=== PATIENT | female | born 1990 | race Hispanic/Latino ===

== ENCOUNTER 2017-06-08 11:52 | Emergency (ER) | payer OTHER ==
[2017-06-08 11:58] VITALS: O2SAT 100; BMI 23.0
[2017-06-08 12:22] VITALS: RESP 18; TEMP 97.6
[2017-06-08] MEDS ORDERED: Sodium Chloride 0.9% 1,000 ML IV STA (12:24)
[2017-06-08] MEDS ORDERED: Iohexol 240 (50 ml) PO ONE (12:27)
[2017-06-08] MEDS ORDERED: Iohexol 240 (50 ml) ONE (12:46)
[2017-06-08 12:53] LABS: RBC URINE 2 /hpf (0-3); URINE BACTERIA OCC (<OCC); URINE BILIRUBIN NEGATIVE (NEGATIVE); URINE BLOOD NEGATIVE (NEGATIVE); URINE COLOR YELLOW (YELLOW); URINE GLUCOSE (UA) NEG (Normal); URINE KETONE NEGATIVE (NEGATIVE); URINE LEUKOCYTE ESTERASE NEG Leu/uL (Negative); URINE PROTEIN NEGATIVE (NEGATIVE); URINE UROBILINOGEN 0.2-1.0 mg/dL (0.2-1.0); WBC URINE 2 /hpf (0-5)
[2017-06-08 12:54] LABS: BASO % 0.3 % (0.0-2.0); EOS # 0.2 K/uL (0.0-0.7); EOS % 3.6 % (0.0-4.0); HEMATOCRIT 38.6 % (34.0-47.0); LYMPH # 1.5 K/uL (1.0-4.3); LYMPH % 29.5 % (20.0-40.0); MEAN CELL VOLUME 86.6 fl (81.0-99.0); MEAN CORPUSCULAR HEMOGLOBIN 28.7 pg (27.0-31.0); MEAN CORPUSCULAR HGB CONC 33.2 g/dL (33.0-37.0); MEAN PLATELET VOLUME 8.3 fl (7.2-11.7); MONO # 0.4 K/uL (0.0-0.8); MONO % 8.6 % (0.0-10.0); RED CELL DISTRIBUTION WIDTH 12.8 % (11.5-14.5); WHITE BLOOD COUNT 5.2 K/uL (4.8-10.8)
[2017-06-08 13:00] LABS: ALB/GLOB RATIO 1.4 (1.0-2.1); ALKALINE PHOSPHATASE 64 U/L (38-126); ALT/SGPT 40 U/L (9-52); AST/SGOT 32 U/L (14-36); BILIRUBIN,TOTAL 0.3 mg/dl (0.2-1.3); BLOOD UREA NITROGEN 11 mg/dl (7-17); CALCIUM 8.7 mg/dL (8.4-10.2); CARBON DIOXIDE 29 mmol/L (22-30); CHLORIDE 104 mmol/L (98-107); GFR AFRICAN-AMERICAN > 60; GLUCOSE,RANDOM 85 mg/dL (65-105); LIPASE 61 U/L (23-300); POTASSIUM 3.7 MMOL/L (3.6-5.0); SODIUM 145 mmol/l (132-148); TOTAL PROTEIN 6.3 G/DL (6.3-8.2)
[2017-06-08 13:21] LABS: PARTIAL THROMBOPLASTIN TIME 29.6 Seconds (25.6-37.1)
--- NOTE | 2017-06-08 13:46 | ED PDOC ---
HPI: Abdomen Time Seen by Provider: 06/08/17 12:06 Chief Complaint (Nursing): Abdominal Pain Chief Complaint (Provider): abdominal pain History Per: Patient History/Exam Limitations: no limitations Current Symptoms Are (Timing): Still Present Location Of Pain/Discomfort: RLQ, LLQ Quality Of Discomfort: Sharp, Cramping Associated Symptoms: Diarrhea, Loss Of Appetite. denies: Nausea, Vomiting, Constipation, Urinary Symptoms Exacerbating Factors: None Alleviating Factors: None Last Bowel Movement: Today Additional Complaint(s): 26yo female c/o lower abdominal pain intermittently since after eating sushi. States her coworkers also ate same food and experienced gastrointestinal distress day after. She developed crampy lower abdominal pain and had several episodes of nonbloody diarrhea associated with chills over the weekend. Denies urinary symptoms. States LMP May 23, used to be on OCP but lapsed and not taking for last 2 weeks. Saw PHYSICS TECHNICAL OFFICER last week had Pap without concerning abnormality. Past Medical History Reviewed: Historical Data Vital Signs: Last Vital Signs Temp 97.6 F 06/08/17 12:18 Pulse 69 06/08/17 17:27 Resp 18 06/08/17 17:27 BP 109/67 06/08/17 17:27 Pulse Ox 100 06/08/17 17:27 - Medical History PMH: No Chronic Diseases - Surgical History Surgical History: No Surg Hx - Family History Family History: States: Unknown Family Hx - Living Arrangements Living Arrangements: With Family - Social History Current smoker - smoking cessation education provided: No - Immunization History Hx Tetanus Toxoid Vaccination: Yes Hx Influenza Vaccination: No Hx Pneumococcal Vaccination: No - Home Medications Home Medications: Ambulatory Orders Medication Instructions Recorded Dicyclomine [Dicyclomine HCl] 10 mg PO TID #12 cap 06/08/17 - Allergies Allergies/Adverse Reactions: Allergies Allergy/AdvReac Type Severity Reaction Status Date / Time No Known Allergies Allergy Verified 06/08/17 12:23 Review of Systems ROS Statement: Except As Marked, All Systems Reviewed And Found Negative Constitutional: Positive for: Chills, Weight loss. Negative for: Fever Cardiovascular: Negative for: Chest Pain, Palpitations Respiratory: Negative for: Cough, Shortness of Breath Gastrointestinal: Positive for: Abdominal Pain, Diarrhea, Constipation. Negative for: Nausea, Vomiting, Melena, Hematochezia Genitourinary Female: Positive for: Pelvic Pain. Negative for: Dysuria, Frequency Skin: Negative for: Rash, Lesions, Jaundice Neurological: Negative for: Weakness, Numbness Psych: Negative for: Anxiety, Depression Physical Exam - Reviewed Nursing Documentation Reviewed: Yes Vital Signs Reviewed: Yes - Physical Exam Appears: Positive for: Well, Non-toxic, No Acute Distress Head Exam: Positive for: ATRAUMATIC, NORMAL INSPECTION, NORMOCEPHALIC Skin: Positive for: Normal Color, Warm, DRY Eye Exam: Positive for: EOMI, Normal appearance, PERRL ENT: Positive for: Normal ENT Inspection Neck: Positive for: Normal, Painless ROM Cardiovascular/Chest: Positive for: Regular Rate, Rhythm Respiratory: Positive for: CNT, Normal Breath Sounds Gastrointestinal/Abdominal: Positive for: Bowel Sounds, Soft, Tenderness (mild b /l lower abd tenderness). Negative for: Distended, Guarding, Rebound Extremity: Positive for: Normal ROM Neurologic/Psych: Positive for: Alert, Oriented. Negative for: Motor/Sensory Deficits - Laboratory Results Result Diagrams: 06/08/17 12:30 06/08/17 12:30 Urine POC: Negative - ECG O2 Sat by Pulse Oximetry: 100 Pulse Ox Interpretation: Normal Medical Decision Making Medical Decision Making: Pt also took dose cipro and flagyl PO this morning. Workup initiated for lower abd pain with gastrointestinal symptoms. Bloodwork, UDip, CT abd pelv ordered. [id number] PROCEDURE: CT Abdomen and Pelvis with contrast HISTORY: lower abd pain, diarrhea FINDINGS: LOWER THORAX: Unremarkable. LIVER: Unremarkable. No gross lesion or ductal dilatation. GALLBLADDER AND BILE DUCTS: Gallbladder is distended but thin walled with no radiodense cholelithiasis or pericholecystic fluid collection related. The common bile duct appears normal caliber overall. PANCREAS: Unremarkable. No gross lesion or ductal dilatation. SPLEEN: Unremarkable. ADRENALS: Unremarkable. No mass. KIDNEYS AND URETERS: Unremarkable. No hydronephrosis. No solid mass. VASCULATURE: Unremarkable. No aortic aneurysm. BOWEL: Unremarkable. No obstruction. No gross mural thickening. APPENDIX: Normal appendix. PERITONEUM: Unremarkable. No free fluid. No free air. LYMPH NODES: Unremarkable. No enlarged lymph nodes. BLADDER: Urinary bladder is distended but thin walled. No associated radiodense urolithiasis. REPRODUCTIVE: Possible tiny right adnexal cyst 1 cm or smaller size. None are clearly evident at the left side. BONES: No acute fracture. OTHER FINDINGS: None. IMPRESSION: No bowel obstruction, mesenteric edema, ascites or free intraperitoneal gas identified or colonic diverticulosis. No definite abscess formation. Possible tiny right adnexal cysts as discussed above. 1730 - Reeval Patient is feeling better and will be discharged home with a prescription for bentyl. She is already taking taking cipro and flagil as prior prescribed. Unsure of usefulness of such medications and told patient she could stop taking them if she is feeling better tomorrow. Modification of diet recommend and instructed to follow up GI and PHYSICS TECHNICAL OFFICER. Scribe Attestation Documented by Jennifer Albrecht acting as a scribe for Dewayne Sanderson MD. Provider Attestation All medical record entries made by the Scribe were at my direction and personally dictated by me. I have reviewed the chart and agree that the record accurately reflects my personal performance of the history, physical exam, medical decision making, and the department course for this patient. I have also personally directed, reviewed, and agree with the discharge instructions and disposition. Disposition - Clinical Impression Clinical Impression: Abdominal pain - Patient ED Disposition Is Patient to be Admitted: No Counseled Patient/Family Regarding: Studies Performed, Diagnosis, Need For Followup - Disposition Referrals: Roberto Carlos Collazo DO [Staff Provider] - Shalini MARINA,MD Mau [Medical Doctor] - Disposition: Routine/Home Disposition Time: 17:30 Condition: STABLE Additional Instructions: Recommend bland diet and advance as tolerated. See PMD or GI specialist in 3-4 days if symptoms persist. Return to ER for any worse or new symptoms. Take medications as directed. Prescriptions: Dicyclomine [Dicyclomine HCl] 10 mg PO TID #12 cap Instructions: Acute Diarrhea (ED), Acute Abdominal Pain (ED) Forms: [facility] (N[place]ian) - POA Present On Arrival: None
[2017-06-08] MEDS ORDERED: Sodium Chloride 0.9% 50 ML IV ONE (15:07)
[2017-06-08] MEDS ORDERED: Iohexol 300 100 ML IJ ONE (15:07)
--- NOTE | 2017-06-08 15:55 | CT ---
PROCEDURE: CT Abdomen and Pelvis with contrast HISTORY: lower abd pain, diarrhea COMPARISON: None. TECHNIQUE: Contrast dose: Omnipaque 300, 90 cc. Radiation dose: Total exam DLP = 405.16 mGy-cm. This CT exam was performed using one or more of the following dose reduction techniques: Automated exposure control, adjustment of the mA and/or kV according to patient size, and/or use of iterative reconstruction technique. FINDINGS: LOWER THORAX: Unremarkable. LIVER: Unremarkable. No gross lesion or ductal dilatation. GALLBLADDER AND BILE DUCTS: Gallbladder is distended but thin walled with no radiodense cholelithiasis or pericholecystic fluid collection related. The common bile duct appears normal caliber overall. PANCREAS: Unremarkable. No gross lesion or ductal dilatation. SPLEEN: Unremarkable. ADRENALS: Unremarkable. No mass. KIDNEYS AND URETERS: Unremarkable. No hydronephrosis. No solid mass. VASCULATURE: Unremarkable. No aortic aneurysm. BOWEL: Unremarkable. No obstruction. No gross mural thickening. APPENDIX: Normal appendix. PERITONEUM: Unremarkable. No free fluid. No free air. LYMPH NODES: Unremarkable. No enlarged lymph nodes. BLADDER: Urinary bladder is distended but thin walled. No associated radiodense urolithiasis. REPRODUCTIVE: Possible tiny right adnexal cyst 1 cm or smaller size. None are clearly evident at the left side. BONES: No acute fracture. OTHER FINDINGS: None. IMPRESSION: No bowel obstruction, mesenteric edema, ascites or free intraperitoneal gas identified or colonic diverticulosis. No definite abscess formation. Possible tiny right adnexal cysts as discussed above.
[2017-06-08 17:27] VITALS: BP 109/67; PULSE 69
== END 2017-06-08 17:41 | disposition home or self-care (01) ==
LOC: H.ER 11:52
DX: R10.32 Left lower quadrant pain (principal); R10.31 Right lower quadrant pain
CPT/HCPCS: 74177; 80053; 81003; 81025; 83690; 85025; 85610; 85730; 96374; 99283; J1885; J7040; Q9966; Q9967